=== PATIENT | male | born 1960 | race Caucasian/White ===

== ENCOUNTER 2022-03-15 08:38 | Emergency (ER) | payer OTHER, BC ==
[~2022-03-15] VITALS: Ht 170.2 cm; Wt 81.6 kg
[2022-03-15 09:45] VITALS: BP 186/102
== END 2022-03-15 11:51 | disposition left against medical advice (07) ==
LOC: ER 08:38
DX: M54.9 Dorsalgia, unspecified (principal); R07.89 Other chest pain; Z53.21 Procedure and treatment not carried out due to patient leaving prior to being seen by health care provider
CPT/HCPCS: 93005